=== PATIENT | male | born 1970 | race Hispanic/Latino ===

== ENCOUNTER 2017-11-05 22:05 | Observation (INO) | payer SELFPAY ==
[~2017-11-05] VITALS: Ht 170.2 cm; Wt 135.2 kg
[2017-11-05] MEDS ORDERED: ASPIRIN 81 MG CHEW TAB PO ONE (22:45)
[2017-11-05 23:15] LABS: BASOPHILS # (AUTO) 0.1 (0.0-0.1); BASOPHILS % 0.6 % (0.0-1.0); EOSINOPHILS # (AUTO) 0.2 (0.0-0.4); EOSINOPHILS % 2.3 % (0.0-6.0); HEMATOCRIT 42.4 % (38.2-49.6); HEMOGLOBIN 14.9 g/dL (14.0-18.0); LYMPHOCYTES # (AUTO) 2.2 (1.0-3.2); LYMPHOCYTES % 26.7 % (18.0-39.1); MEAN CORPUSCULAR HEMOGLOBIN 31.8 pg (28-32); MEAN CORPUSCULAR HGB CONC 35.1 g/dL (31-35); MEAN CORPUSCULAR VOLUME 90.4 fL (81-99); MONOCYTES # (AUTO) 0.5 (0.2-0.8); MONOCYTES % 6.5 % (4.4-11.3); NEUTROPHILS # (AUTO) 5.2 (2.1-6.9); NEUTROPHILS % 63.5 % (38.7-80.0); PLATELET COUNT 201 x10e3/uL (140-360); RED BLOOD COUNT 4.69 x10e6/uL (4.3-5.7); RED CELL DISTRIBUTION WIDTH 12.6 % (11.7-14.4)
[2017-11-05 23:21] LABS: INR 1.27; PROTHROMBIN TIME 14.9 seconds (11.9-14.5)
--- NOTE | 2017-11-05 23:29 | Diagnostic Imaging Report ---
CHEST SINGLE (PORTABLE), 11/05/2017 10:34 PM Technique: CHEST SINGLE (PORTABLE) Comparison: None available. Clinical history: Chest pain Findings: Limited by portable technique and overlying soft tissues. Heart/mediastinum: Normal for portable technique. Lungs/pleural spaces: Apparent right basilar opacity. No pleural effusion or pneumothorax. Impression: Limited by portable technique and overlying soft tissues. Apparent right basilar opacity, which may be artifact of technique and vascular crowding. Consider follow-up upright PA and lateral first concern for infection. Signed by: Dr Jeanine Vasquez MD on 11/05/2017 11:25 PM
[2017-11-05 23:36] LABS: ALANINE AMINOTRANSFERASE 31 IU/L (0-55); ALBUMIN 3.3 g/dL (3.5-5.0); ALBUMIN/GLOBULIN RATIO 0.8 (0.8-2.0); ALKALINE PHOSPHATASE 136 IU/L (40-150); ANION GAP 14.7 mmol/L (8-16); BLOOD UREA NITROGEN 8 mg/dL (7-26); BUN/CREATININE RATIO 9 (6-25); CALCIUM 9.2 mg/dL (8.4-10.2); CARBON DIOXIDE 26 mmol/L (22-29); CHLORIDE 102 mmol/L (98-107); CREATINE KINASE 163 IU/L (30-200); CREATININE, SERUM 0.85 mg/dL (0.72-1.25); EST GLOMERULAR FILTRATION RATE > 60 ML/MIN (60-); GLUCOSE 113 mg/dL (74-118); POTASSIUM 3.7 mmol/L (3.5-5.1); SODIUM 139 mmol/L (136-145)
[2017-11-06] VITALS (7 sets, daily range): BP systolic 133–159; BP diastolic 73–98
[2017-11-06] MEDS ORDERED: DEXTROSE 50% SYRINGE 50 ML IV PRN (00:15)
[2017-11-06] MEDS: FAMOTIDINE 20 MG/2 ML VIAL IV SCH ×2 (01:07→08:43)
[2017-11-06] MEDS: MORPHINE SULFATE 2 MG/ML SYR IV PRN ×4 (02:46→20:01)
[2017-11-06] MEDS ORDERED: FOLIC ACID1 MG PO (03:27)
[2017-11-06] MEDS ORDERED: METFORMIN HCL500 MG PO (03:27)
[2017-11-06] MEDS ORDERED: GABAPENTIN100 MG PO (03:27)
[2017-11-06] MEDS ORDERED: DEXILANT30 MG PO (03:27)
[2017-11-06] MEDS ORDERED: VITAMIN D22000 UNIT PO (03:27)
[2017-11-06] MEDS ORDERED: LISINOPRIL2.5 MG PO (03:27)
[2017-11-06] MEDS: ONDANSETRON HCL INJ 2 MG/ML VIAL IV PRN ×4 (06:36→20:01)
[2017-11-06 07:14] LABS: AMYLASE 36 U/L (25-125); LIPASE 29 U/L (8-78)
[2017-11-06] MEDS: INSULIN REGULAR, HUMAN 100 UNIT/1 ML 3ML VIAL SQ SCH ×4 (08:24→21:15)
[2017-11-06 08:31] LABS: CREATINE KINASE MB 4.5 ng/mL (0-5.0)
[2017-11-06] MEDS: ASPIRIN 81 MG ENTERIC COATED PO SCH (09:00)
[2017-11-06 12:53] LABS: CREATINE KINASE 96 IU/L (30-200)
--- NOTE | 2017-11-06 13:56 | Diagnostic Imaging Report ---
ADDENDUM #1 Impression: 1. No acute abnormalities. 2. Incidental mild frontal white matter microvascular ischemic changes. Signed by: Dr. Chepe Christiansen M.D. on 11/06/2017 6:29 PM ORIGINAL REPORT History: Right arm numbness, left pain Comparison studies: None Technique: Axial images were obtained from the skull base to the vertex. Coronal and sagittal reconstructions obtained from the axial data. Findings: Scalp/skull: No abnormalities. No fractures, blastic or lytic lesions. Extra-axial spaces: No masses. No fluid collections. Brain sulci: Appropriate for age. Ventricles: Normal in size and configuration. No hydrocephalus. Parenchyma: Subtle hypodensities in the frontal white matter are small vessel ischemic changes. No masses, hemorrhage, acute or chronic cortical vascular insults. Sellar/suprasellar region: No abnormalities Craniocervical junction: Patent foramen magnum. No Chiari one malformation. IMPRESSION: No acute abnormalities Incidental mild frontal white matter normal residual ischemic changes. Signed by: Dr. Chepe Christiansen M.D. on 11/06/2017 1:52 PM
--- NOTE | 2017-11-06 16:13 | Diagnostic Imaging Report ---
EXAMINATION: CHEST 2 VIEWS INDICATION: Right opacity. COMPARISON: 11/05/2017. FINDINGS: TUBES and LINES: None. LUNGS: Mild patchy density in the right lung base again observed, associated with mild elevation of the right hemidiaphragm may reflect subsegmental atelectasis. Peribronchial thickening. PLEURA: No pleural effusion or pneumothorax. HEART AND MEDIASTINUM: The cardiomediastinal silhouette is unremarkable. BONES AND SOFT TISSUES: No acute osseous lesion. Soft tissues are unremarkable. UPPER ABDOMEN: No free air under the diaphragm. IMPRESSION: Mild patchy density in the right lung base again observed, associated with mild elevation of the right hemidiaphragm may reflect subsegmental atelectasis. Recommend chest PA and lateral views when patient's condition permits. Signed by: Dr. Breonna Sanchez M.D. on 11/06/2017 4:09 PM
[2017-11-06] MEDS: METOPROLOL TARTRATE 25 MG TAB PO SCH (16:55)
[2017-11-06] MEDS: METFORMIN HCL 500 MG TAB PO SCH (16:55)
[2017-11-06] MEDS ORDERED: ASPIRIN 81 MG CHEW TAB PO ONE (17:00)
[2017-11-06 18:03] LABS: CREATINE KINASE 85 IU/L (30-200)
[2017-11-06 18:28] LABS: FREE THYROXINE INDEX 2.19 (1.4-3.8); THYROID STIMULATING HORMONE 1.624 uIU/mL (0.350-4.940)
--- NOTE | 2017-11-06 18:36 | Diagnostic Imaging Report ---
History: Arm and leg pain Comparison studies: None Technique: Axial images were obtained through the cervical region.. Coronal and sagittal images reconstructed from the axial data.. Intravenous contrast: None Findings: Fractures: None. Soft tissues: No gross abnormalities. Atlantoaxial articulation: Intact. Alignment: Straightening of the usual lordosis is probably positional.. No scoliosis. Cervicomedullary junction: No abnormalities. The foramen magnum is patent. Vertebrae: No infection or neoplasm. Degenerative changes: Minimally degenerated disc at C4-5 Foraminal stenosis is mild left at C2-3 and C3-4, moderate left at C5-6, mild left at C6-7 due to uncoarthrosis. No significant spinal canal stenosis. IMPRESSION: 1. No acute abnormalities. 2. Foraminal stenosis from C2 through C7 is worse on the left at C5-6. 3. Cannot adequately evaluate for ligament, spinal cord and or vascular abnormalities. Signed by: Dr. Chepe Christiansen M.D. on 11/06/2017 6:33 PM
--- NOTE | 2017-11-06 19:48 | Diagnostic Imaging Report ---
EXAM: CT CHEST W DATE: 11/06/2017 5:16 PM INDICATION: Left arm and leg numbness, chest pain COMPARISON: None TECHNIQUE: Multidetector CT scanning of the chest was performed. Coronal and sagittal multiplanar reformations were obtained. IV Contrast: 100 ml Isovue 370/300 FINDINGS: Evaluation is degraded by suboptimal contrast bolus (HU 228), noise related to body habitus and motion artifact. Given this, no evidence of acute pulmonary embolism. LUNGS AND PLEURA: No consolidations or edema. Mild air trapping is noted, likely related to small airways disease. No effusions or pneumothorax. HEART, MEDIASTINUM, VESSELS: Mild cardiomegaly without pericardial effusion. Main pulmonary artery is mildly enlarged, 3.3 cm. No suspicious adenopathy. UPPER ABDOMEN: 4.6 cm left myelolipoma. Otherwise unremarkable arterial phase images through the upper abdomen. MUSCULOSKELETAL: No acute findings. IMPRESSION: 1. Suboptimal assessment for pulmonary embolism, as above. Otherwise no evidence of acute embolism. 2. No other acute abnormality. Signed by: Dr Jeanine Vasquez MD on 11/06/2017 7:44 PM
[2017-11-06] MEDS: NITROGLYCERIN 0.4 MG SUBL SL PRN ×3 (20:01→20:25)
[2017-11-06] MEDS ORDERED: SODIUM CHLORIDE 0.9% 50ML 50 ML ONE (21:19)
[2017-11-06] MEDS ORDERED: IOPAMIDOL 370 MG/ML 200 ML INFUS..BTL INJ ONE (21:20)
--- NOTE | 2017-11-06 23:40 | Consultation ---
DATE OF CONSULTATION: CARDIOLOGY CONSULTATION NOTE CLINICAL HISTORY: This is a 47-year-old man referred by Dr. Fide Crawford for recurrent persistent left arm and leg numbness associated with pressure in the left chest on and off since approximately 4 p.m. yesterday. This patient normally follows at the [facility] because of left ankle trauma as well as diabetes and hypertension. He has history of cocaine abuse, marijuana usage, as well as drinking 3 to 4 beers per day. He was seen at the [facility] but did not mention having any chest pains at that time. Many tests were ordered including referral for leukopenia to license inspector as well as to orthopedic surgeon. He cannot remember the long list of studies that was ordered. At approximately 4 p.m. last night, he noticed mild left-sided chest tightness with palpitations. He noticed his left arm and leg becoming numb. At approximately 7 p.m., he came to the emergency room where his symptoms spontaneously improved but did not resolve. He is still having left-sided chest tightness 24 hours later and left arm and left leg numbness. Cardiac monitoring does not show any arrhythmia. EKG was negative. Initial cardiac enzymes were negative. Cardiology consultation requested. PAST MEDICAL HISTORY: Remarkable for diabetes, hypertension, obesity and drug abuse. 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 Drinks 3 or 4 beers per day. Denies smoking. Has used cocaine and marijuana. Last use of cocaine was 2 weeks ago. FAMILY HISTORY: Father had colon cancer. Mother and sister had diabetes. REVIEW OF SYSTEMS: Noncontributory. PHYSICAL EXAMINATION GENERAL: He is obese, alert, coherent, appears to be comfortable. CARDIAC: Jugular veins were not distended. S1 and S2 were regular. There was no appreciable murmur. LUNGS: Clear. ABDOMEN: Soft. Bowel sounds are present. EXTREMITIES: No cyanosis, clubbing, or edema. IMPRESSIONS 1. Atypical mild persistent left-sided chest pressure associated with left leg and left arm numbness, probably not cardiac in origin, particularly since the patient has no exertion-related chest discomfort in the past. 2. Type 2 diabetes. 3. Obesity. 4. Hypertension. 5. Cocaine and marijuana abuse and alcohol usage. 6. Left ankle chronic injury and pain. RECOMMENDATIONS 1. MRA scan of the head and neck. 2. I agree with trial of beta blockers. 3. Continue telemetry monitoring. 4. Serial enzymes. 5. I believe his need for cardiac workup can be done on outpatient basis via [facility]. Thank you very much. Job#: [id number] CF cc:FIDE CRAWFORD MD
[2017-11-07] VITALS: BP 124/60
[2017-11-07] MEDS: ONDANSETRON HCL INJ 2 MG/ML VIAL IV PRN ×2 (01:25→05:54)
[2017-11-07] MEDS: MORPHINE SULFATE 2 MG/ML SYR IV PRN ×3 (01:25→10:19)
[2017-11-07 04:31] VITALS: BP 121/69
[2017-11-07 06:22] LABS: CHOL/HDL RATIO 2.7 (3.9-4.7)
[2017-11-07] MEDS: INSULIN REGULAR, HUMAN 100 UNIT/1 ML 3ML VIAL SQ SCH (07:30)
[2017-11-07 08:00] VITALS: BP 121/70
[2017-11-07 08:12] LABS: CREATINE KINASE 67 IU/L (30-200)
[2017-11-07] MEDS: ASPIRIN 81 MG ENTERIC COATED PO SCH (08:12)
[2017-11-07] MEDS: METFORMIN HCL 500 MG TAB PO SCH (08:12)
[2017-11-07] MEDS: METOPROLOL TARTRATE 25 MG TAB PO SCH (08:12)
[2017-11-07] MEDS ORDERED: LISINOPRIL 2.5 MG TAB PO SCH (09:00)
[2017-11-07] MEDS ORDERED: GABAPENTIN 300 MG CAP PO SCH (09:45)
--- NOTE | 2017-11-07 10:41 | Cardiology Report ---
DATE OF STUDY: November 06, 2017 ECHOCARDIOGRAM M-MODE: Top normal left ventricular size. Normal left ventricular wall thickness and contractility. Normal mitral and aortic valves. No pericardial effusion. SECTOR SCAN: Top normal left atrial size. Normal left ventricular wall thickness and contractility. Normal mitral and aortic valves. No pericardial effusion. CARDIAC DOPPLER STUDY WITH COLOR: Trace tricuspid regurgitation. CONCLUSIONS 1. Left ventricular ejection fraction is approximately 60%. 2. Top normal left atrial size. 3. Trace tricuspid regurgitation. Job#: [id number] cc:TABATHA CRAWFORD MD
[2017-11-07 10:55] LABS: CLARITY,URINE SL CLOUDY (CLEAR); COLOR,URINE AMBER (YELLOW); LEUKOCYTE ESTERASE ,URINE NEGATIVE (NEGATIVE); NITRITE,URINE NEGATIVE (NEGATIVE); PROTEIN,URINE DIPSTICK TRACE (NEGATIVE)
[2017-11-07 10:56] LABS: BILIRUBIN,URINE 2+ (NEGATIVE); KETONES,URINE TRACE (NEGATIVE); URINE UROBILINOGEN 8 mg/dL (0.2 - 1)
[2017-11-07] MEDS ORDERED: METOPROLOL SUCC25 MG PO (11:04)
[2017-11-07] MEDS ORDERED: NEURONTIN300 MG PO (11:05)
[2017-11-07 11:17] LABS: BACTERIA,URINE FEW /HPF; EPITHELIAL CELLS,URINE FEW /LPF; RBC,URINE 0-5 /HPF (0-5)
--- NOTE | 2017-11-07 13:31 | Discharge Summary ---
FINAL DIAGNOSIS: Atypical chest pain. SECONDARY DIAGNOSES 1. Cervical and presumed lumbar radiculopathy. 2. Morbid obesity. 3. Diabetes. 4. Hypertension. 5. Cocaine abuse. REHAB PHYSICIAN: Dr. Manjarrez, cardiology. PROCEDURES/STUDIES PERFORMED 1. Echocardiogram. 2. CT angiogram of the chest, which was negative for any obvious pulmonary embolism. 3. Cervical spine CT that was consistent with left-sided cervical radiculopathy. HISTORY: Per [facility] HOSPITAL COURSE: The patient was admitted. He had no acute myocardial infarction per cardiac enzymes. His chest pain is atypical. He was evaluated by Dr. Manjarrez, who recommended outpatient evaluation. His left leg numbness got better. His left arm numbness is still persistent. I have explained to him that this is due to cervical radiculopathy. I went ahead and increased his Neurontin from 100 mg to 300 mg t.i.d. The patient was also given some metoprolol. The patient admitted to cocaine use 2 weeks ago. His urine toxicology screen was negative. The patient was seen and examined today. CONDITION ON DISCHARGE: Stable. DISCHARGE MEDICATIONS: Please see medication reconciliation form. TABATHA CRAWFORD M.D. Job#: [id number]
== END 2017-11-07 11:59 | disposition home or self-care (01) ==
LOC: ER 22:05 → ERHOLD 11-06 00:27 → MED/SURG2 11-06 02:13
PROVIDERS: ADMIT Internal Medicine; ATTEND Internal Medicine
DX: R07.89 Other chest pain (principal); E11.9 Type 2 diabetes mellitus without complications; I10 Essential (primary) hypertension; K21.9 Gastro-esophageal reflux disease without esophagitis; E66.01 Morbid (severe) obesity due to excess calories; R20.0 Anesthesia of skin; F14.10 Cocaine abuse, uncomplicated; F12.10 Cannabis abuse, uncomplicated; Z68.42 Body mass index [BMI] 45.0-49.9, adult; M54.12 Radiculopathy, cervical region; M25.572 Pain in left ankle and joints of left foot
CPT/HCPCS: 36415 ×2; 70450; 71045; 71046; 71260; 72125; 80053; 80061; 81001; 82150; 82550 ×3; 82553 ×3; 82948 ×2; 83690; 83735; 83880; 84436; 84443; 84479; 84484 ×3; 85025; 85610; 85730; 93005; 93306; 96374; 96375; 96376; 99284; G0378 ×2; J2270 ×2; J2405 ×2; Q9967